=== PATIENT | male | born 1960 | race Caucasian/White ===

== ENCOUNTER → 2020-07-05 | Outpatient (CLI) | payer SELFPAY ==
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
== END ==
LOC: RAD 14:22
PROVIDERS: ATTEND Internal Medicine
DX: M48.02 Spinal stenosis, cervical region (principal); M47.22 Other spondylosis with radiculopathy, cervical region; M43.12 Spondylolisthesis, cervical region
CPT/HCPCS: 72141